=== PATIENT | female | born 1990 | race Caucasian/White ===

== ENCOUNTER 2018-06-10 19:43 | Emergency (ER) | payer MEDICAID, OTHER ==
[2018-06-10 19:52] VITALS: BP 152/83
[2018-06-10] MEDS ORDERED: ACETAMINOPHEN 325 MG TABLET PO ONE (21:07)
[2018-06-10] MEDS ORDERED: DIPH/PERTUSS(ACELL)/TETANUS VAC/PF 0.5 ML SYR (>=10YO) IM ONE (21:07)
[2018-06-10] MEDS ORDERED: IBUPROFEN 600 MG TABLET PO ONE (21:07)
--- NOTE | 2018-06-10 21:23 | ER Document Report ---
HPI - HPI Patient complains to provider of: Left shoulder injury Time Seen by Provider: 06/10/18 20:33 Onset: This afternoon Onset/Duration: Sudden Quality of pain: Achy Severity: Mild Pain Level: 3 Associated Symptoms: None Exacerbated by: Denies Relieved by: Denies Similar symptoms previously: No - CONSTITUTIONAL Constitutional: DENIES: Fever, Chills - NEURO Neurology: DENIES: Headache, Weakness - CARDIOVASCULAR Cardiovascular: DENIES: Chest pain - RESPIRATORY Respiratory: DENIES: Trouble Breathing, Coughing - GASTROINTESTINAL Gastrointestinal: DENIES: Abdominal Pain, Nausea, Patient vomiting - REPRODUCTIVE Reproductive: DENIES: : - DERM Skin Problems: Abrasion - Left shoulder left lateral arm Past Medical History - General Information source: Patient - Social History Smoking Status: Never Smoker Chew tobacco use (# tins/day): No Frequency of alcohol use: None Drug Abuse: None Family History: Reviewed & Not Pertinent Patient has suicidal ideation: No Patient has homicidal ideation: No Endocrine Medical History: Reports: Hx Hypothyroidism Renal/ Medical History: Denies: Hx Peritoneal Dialysis Past Surgical History: Reports: Hx Genitourinary Surgery - Immunizations Hx Diphtheria, Pertussis, Tetanus Vaccination: Yes Vertical Provider Document - CONSTITUTIONAL Agree With Documented VS: Yes - INFECTION CONTROL TRAVEL OUTSIDE OF THE [place] IN LAST 30 DAYS: No - HEENT HEENT: Atraumatic, Normocephalic - NECK Neck: Normal Inspection, Supple - RESPIRATORY Respiratory: Breath Sounds Normal, No Respiratory Distress - CARDIOVASCULAR Cardiovascular: Regular Rate, Regular Rhythm, No Murmur - GI/ABDOMEN Gastrointestinal: Abdomen Soft, Abdomen Non-Tender - NEURO Level of Consciousness: Awake, Alert, Appropriate - DERM Integumentary: Warm, Dry - Multiple abrasions noted on left shoulder lateral left humerus and left forearm from falling shingles off of single-story roof Course - Re-evaluation Re-evalutation: 06/10/18 21:22 Patient was at work today and shingles fell on her from single-story. She initially went to [facility] to get a tetanus shot but because they had open abrasions she was told that need to be done by provider so she came to the emergency department. Multiple abrasions noted on left arm some mild tenderness to palpation over the left shoulder. Plan is to treat pain with Motrin and Tylenol, and to get a left shoulder x-ray series. - Vital Signs Vital signs: Temp Pulse Resp BP Pulse Ox 97.8 F 52 L 20 152/83 H 98 06/10/18 19:48 06/10/18 19:48 06/10/18 19:48 06/10/18 19:48 06/10/18 19:48 Discharge - Discharge Clinical Impression: Multiple abrasions Shoulder pain, acute Qualifiers: Laterality: left Qualified Code(s): M25.512 - Pain in left shoulder Condition: Good Disposition: HOME, SELF-CARE Additional Instructions: Shoulder Injury You have injured your shoulder. Time and protection are required in order to heal properly. Many injuries are quite disabling, and should be taken seriously. Initial treatment includes cold packs and a sling to rest the shoulder. The physician has assessed the seriousness of your injury, and has outlined a treatment plan. Understand that this treatment may change, depending on how you progress. Call us if there's severe pain, numbness, or loss of function. Forms: Return to Work Referrals: MARISSA ALSTON MD [Primary Care Provider] - Follow up as needed
--- NOTE | 2018-06-10 22:34 | RADIOLOGY REPORT (SQ) ---
EXAM DESCRIPTION: 3 views of the left shoulder CLINICAL HISTORY: 27 years, Female, trauma COMPARISON: None. FINDINGS: There is no acute fracture or dislocation. The glenohumeral articulation is intact. The acromioclavicular joint is normal in appearance. Limited evaluation of the scapula and clavicle demonstrate no gross abnormalities. The chest is grossly normal in appearance. IMPRESSION: No acute fracture or dislocation of the left shoulder.
== END 2018-06-10 23:01 | disposition home or self-care (01) ==
LOC: ER 19:43
DX: S40.212A Abrasion of left shoulder, initial encounter (principal); S40.812A Abrasion of left upper arm, initial encounter; S50.812A Abrasion of left forearm, initial encounter; M25.512 Pain in left shoulder; W20.8XXA Other cause of strike by thrown, projected or falling object, initial encounter; Y99.0 Civilian activity done for income or pay; Z23 Encounter for immunization
CPT/HCPCS: 90471; 90715; 99283